=== PATIENT | female | born 1955 | race Caucasian/White ===

== ENCOUNTER 2020-05-12 12:51 | Outpatient (CLI) | payer MEDICARE, OTHER ==
--- NOTE | 2020-05-12 14:04 | ULT ---
EXAM: Transabdominal and transvaginal pelvic ultrasound with Doppler PROVIDED CLINICAL HISTORY: Postmenopausal bleeding COMPARISON: None FINDINGS: Uterus measures about 8.1 x 4.1 x 4.4 cm, and is retroverted. There is a 1.2 cm nonspecific cyst seen within the endometrium of the lower uterine segment. Endometrial thickness is about 5 mm. There is a 2.7 cm circumscribed focus of altered echogenicity within the uterine myometrium anteriorly compati ble with fibroid. The right ovary appears sonographically unremarkable. The left ovary is not visualized. Color Doppler and spectral analysis of the right ovarian waveform demonstrates normal flow. There is no evidence for significant free pelvic fluid. IMPRESSION: No evidence for endometrial thickening.
== END 2020-05-12 12:52 | disposition home or self-care (01) ==
LOC: SCSULT 12:51
PROVIDERS: ATTEND Family Medicine
DX: N95.0 Postmenopausal bleeding (principal)
CPT/HCPCS: 76856